=== PATIENT | male | born 1990 | race Caucasian/White ===

== ENCOUNTER 2019-11-25 18:09 | Emergency (ER) | payer SELFPAY ==
[2019-11-25 18:11] VITALS: BP 133/85; PULSE 104; RESP 22; TEMP 36.6; O2SAT 97; BMI 21.5
--- NOTE | 2019-11-25 18:20 | ED.RN ---
PT TALKED WITH [facility] AND IS CURRENTLY THROWING THINGS AND WANTING TO LEAVE. ATTEMPTED TO EXPLAIN THE NEED FOR PT TO BE SEEN BY DR AND SATED UNDERSTOOD THE RISKS WITH LEAVING. PT IS ALERT AND ORIENTED. PT CONTINUES TO WANT TO LEAVE AND YELL AND BE DISRUPTIVE. PT THEN AMBULATED FROM ER WITH STEADY GAIT.
== END 2019-11-25 18:25 | disposition left against medical advice (07) ==
LOC: ED 18:26
PROVIDERS: Emergency Provider Emergency Medicine
DX: Z53.21 Procedure and treatment not carried out due to patient leaving prior to being seen by health care provider (principal)
CPT/HCPCS: 99283

== ENCOUNTER 2019-11-25 18:58 | Emergency (ER) | payer SELFPAY ==
[2019-11-25 19:02] VITALS: BP 119/74; PULSE 78; RESP 14; TEMP 36.9; O2SAT 99; BMI 22.1
[2019-11-25] MEDS: Naloxone 2 MG/2 ML Syringe 1 MG NS (19:13)
[2019-11-25 19:47] VITALS: RESP 16; O2SAT 98
--- NOTE | 2019-11-25 19:57 | CT_ITS ---
INDICATION: Recent overdose/unresponsive. Found on ground. EXAMINATION: CT BRAIN - TEMPORARY TECHNIQUE: Multiple axial images were obtained of the head without intravenous contrast. A radiation dose optimization technique was used for this scan. IV Contrast dosage and agent: None. COMPARISON: FINDINGS: BRAIN PARENCHYMA: No intra- or extra-axial hemorrhage. No evidence of acute infarct. No intracranial mass or mass effect. There is preservation of the martin/white matter interface. Posterior fossa structures are unremarkable. CSF SPACES: Appropriate for age. No hydrocephalus. Basal cisterns are patent. CALVARIUM, SKULL BASE, PARANASAL SINUSES AND MASTOID AIR CELLS: Clear. No discrete lytic or blastic abnormalities. ORBITS: Both globes, extraocular muscles, optic nerves and retrobulbar fat appear unremarkable. ASPECTS Score for Acute Strokes: 02/16 CT/Brain/Head without Contrast IMPRESSION: Negative Brain CT without contrast. Electronically Signed: Missael Sykes MD at 20:59 EDT , Service support ,
--- NOTE | 2019-11-25 20:33 | RAD_ITS ---
STUDY: PORTABLE CHEST REASON FOR EXAM: Altered mental status, chest pain, 29 years old. Male TECHNIQUE: Single portable upright chest COMPARISON: None. FINDINGS: Lungs are normally expanded. No superimposed acute pulmonary process or pleural effusion. Cardiac silhouette is normal. No bony abnormalities. RAD/Chest 1 View (Portable) IMPRESSION: No acute pulmonary process Electronically Signed: Valentino Jovel MD at 21:30 EDT , Service support ,
[2019-11-25 21:08] LABS: Absolute Lymphocyte Count 1.48 X10^3/uL (0.83-4.51); Absolute Neutrophil Count 6.2 X10^3/uL (2.0-7.7); Basophil# 0.04 X10^3/uL; Basophil% 0.5 % (0-1); Eosinophil# 0.07 X10^3/uL; Eosinophils% 0.8 % (0-5); Hematocrit 38.1 % (40-54); Hemoglobin 12.9 g/dL (13.0-16.5); Lymphocyte # 1.48 X10^3/ul (4.0); Lymphocyte % 17.4 % (19-41); Mean Corp Hgb Conc 33.9 g/dL (32-36); Mean Corpuscular Hgb 31.7 pg (27.0-32.0); Mean Corpuscular Volume 93.6 fL (80-94); Mean Platelet Vol. 9.7 fl (6.2-12.0); Monocyte# 0.73 X10^3/uL; Monocyte% 8.6 % (0-10); NRBC Flagged by Analyzer 0 % (0-5); Neutrophil # 6.17 X10^3/uL (2.7-7.7); Neutrophil % 72.3 % (47-70); Platelet Count 253 K/mm3 (150-450); RBC Distribution Width CV 13.1 % (11.6-14.6); RBC Distribution Width SD 44.9 fl (35.1-43.9); Red Blood Count 4.07 M/mm3 (4.6-6.2); White Blood Count 8.5 K/mm3 (4.4-11.0)
[2019-11-25 21:10] VITALS: BP 118/64; PULSE 67; RESP 17; O2SAT 97
[2019-11-25 21:13] LABS: ALB/GLOB Ratio 0.8 RATIO (0.9-2.4); AST(SGOT) 48 U/L (15-37); Alanine Aminotransfer ALT/SGPT 62 U/L (16-61); Albumin, Serum 3.5 g/dL (3.2-5.0); Alkaline Phosphatase 99 U/L (45-117); Anion Gap 6 (5-15); BUN 11 mg/dL (7-18); BUN/Creat Ratio 14.3 RATIO (10-20); Chloride 101 mmol/L (98-107); Creatinine, Serum 0.77 mg/dL (0.70-1.30); EST Glomerular Filtration Rate 126 mL/min (>60); Est Glom Filt Rate - Afr Amer 152 mL/min (>60); Estimated Creatinine Clearance 146.83 ml/min; Globulin 4.6 g/dL (2.2-4.2); Glucose 99 mg/dL (74-106); Potassium 3.7 mmol/L (3.5-5.1); Protein, Total 8.1 g/dL (6.4-8.2); Sodium Level 137 mmol/L (136-145)
[2019-11-25] MEDS: Naloxone 2 MG/2 ML Syringe 1 MG IV (21:48)
[2019-11-25 21:50] VITALS: BP 114/66; PULSE 92; RESP 16; O2SAT 97
--- NOTE | 2019-11-25 22:36 | ED.VIS.GEN ---
History of Present Illness Chief Complaint: Overdose Informant: Electronic Bench Technician Limited by: Intoxicated Onset: Today Narrative: Patient is a 29-year-old male with no known medical history presenting for concern of overdose. Patient was brought in by EMS after he was found laying in a ditch [place] from the hospital. Patient had actually just left to the emergency room. About an hour beforehand, patient been brought in by EMS for an overdose. At that time patient received Narcan. It was reported on scene that he might possibly taken for Xanax as well. Patient was found with methamphetamines on him and a needle in his arm. When patient initially arrived to the emergency room he was alert and oriented and was refusing treatment. Patient refused to be seen. Not clear if patient sustained any injuries or what happened after he left. Is not clear patient use more drugs. Patient does not have any complaints at this time is not able to give a good history secondary to his altered mental state. Past Medical History - Allergies and Home Meds Allergies/Adverse Reactions: Allergies No Known Allergies Allergy (Verified 11/25/19 18:20) Primary Care Physician: Care Physician,No Primary [Primary Care Provider] - Smoking Status: Current every day smoker Review of Systems ROS: Unable to Obtain - AMS Physical Exam Vital Signs/Narrative: Vital Signs Temp Pulse Resp BP Pulse Ox 11/25/19 21:50 92 16 114/66 97 11/25/19 21:10 67 17 118/64 97 11/25/19 19:47 16 98 11/25/19 19:02 98.5 F 78 14 119/74 99 Inital Vital Signs reviewed: Yes General: Well nourished, Well developed, No Acute Distress Head: Normocephalic, Atraumatic Eyes: EOMI, - - Pinpoint pupils ENT: Moist mucous membranes, No rhinorrhea, TM's clear, - - No septal hematoma, no signs of facial trauma Neck: Supple, Nontender Cardiovascular: Regular rate, Regular rhythm, No murmurs Respiratory: No distress, CTA bilaterally, Chest nontender Abdomen: Soft, Nontender, Nondistended, Normal bowel sounds Back: Nontender, Normal Inspection Extremities: Nontender, No edema Skin: Normal color, No rash, - - Multiple track wilkinson on the arm, no associated cellulitis or abscess Neurological: Normal Strength, Normal Sensation, Stupor, - - Patient is arousable to tactile stimuli. Otherwise he is sleeping with deep but sonorous respirations Diagnostic/Tx/Re-eval Clinical Impression(s) from Imaging Studies Brain CT 11/25/19 19:57 IMPRESSION: Negative Brain CT without contrast. Electronically Signed: Missael Sykes MD at 20:59 EDT , Service support , Chest X-Ray 11/25/19 20:33 IMPRESSION: No acute pulmonary process Electronically Signed: Valentino Jovel MD at 21:30 EDT , Service support , Laboratory Data 11/25/19 11/25/19 11/25/19 20:50 20:50 20:50 WBC 8.5 RBC 4.07 L Hgb 12.9 L Hct 38.1 L MCV 93.6 MCH 31.7 MCHC 33.9 RDW Std Deviation 44.9 H RDW Coeff of Robert 13.1 Plt Count 253 MPV 9.7 Immature Gran % (Auto) 0.400 Neut % (Auto) 72.3 H Lymph % (Auto) 17.4 L [place] % (Auto) 8.6 Eos % (Auto) 0.8 Baso % (Auto) 0.5 Absolute Neuts (auto) 6.2 Absolute Lymphs (auto) 1.48 Nucleated RBC % 0 Sodium 137 Potassium 3.7 Chloride 101 Carbon Dioxide 30.0 Anion Gap 6 BUN 11 Creatinine 0.77 Estim Creat Clear Calc 146.83 Est GFR (MDRD) Af Amer 152 Est GFR (MDRD) Non-Af 126 BUN/Creatinine Ratio 14.3 Glucose 99 Calcium 9.0 Total Bilirubin 0.40 AST 48 H ALT 62 H Alkaline Phosphatase 99 Total Protein 8.1 Albumin 3.5 Globulin 4.6 H Albumin/Globulin Ratio 0.8 L Ethyl Alcohol 5.0 - Medical Decision Making Patient is evaluated for mental status change. I suspect that is secondary to an opioid overdose this patient has pinpoint pupils and was just seen in our ER about an hour ago for the same complaint. At that time patient received Narcan prior to arrival and then was refusing treatment while in the emergency room. Is not clear if patient use more drugs or he left. Patient is given intranasal Narcan with minimal improvement of his symptoms. He is eventually given 1 of IV Narcan with some improvement of his mentation but he still sleeping. Work-up including a head CT lab work and urine is obtained in case there is another cause of his mental status change. These were all negative with urinalysis still pending. Patient is monitored on continuous pulse oximetry and telemetry. Plan is to allow him to sleep in the ER until his drugs were off. At that point patient likely can be discharged home. He will be given information for 180. ED Disposition - Plan for ED Patient: Disposition: Home or Assisted Living Diagnosis: Opioid overdose Instructions: ED Abuse Narcotic, ED Overdose Opiate Referrals: [facility] [STAFF PHYSICIAN] -
[2019-11-26] VITALS (8 sets, daily range): BP systolic 106–113; BP diastolic 62–76; PULSE 74; RESP 14–18; O2SAT 97–98
== END 2019-11-26 06:54 | disposition home or self-care (01) ==
PROVIDERS: Emergency Provider Emergency Medicine
DX: T40.601A Poisoning by unspecified narcotics, accidental (unintentional), initial encounter (principal); R41.82 Altered mental status, unspecified; Y92.89 Other specified places as the place of occurrence of the external cause; F17.200 Nicotine dependence, unspecified, uncomplicated
CPT/HCPCS: 70450; 71045; 80053; 80320; 85025; 96374; 99285; A4216; G0480